=== PATIENT | male | born 1965 | race Caucasian/White ===

== ENCOUNTER 2017-10-14 18:45 | Emergency (ER) | payer OTHER ==
[2017-10-14 18:50] VITALS: BMI 26.6
--- NOTE | 2017-10-14 18:51 | PDOC ---
Rapid Medical Evaluation Time Seen by Provider: 10/14/17 18:47 Medical Evaluation: Allergies Allergy/AdvReac Type Severity Reaction Status Date / Time acetaminophen [From Tylenol] Allergy Hives Verified 07/20/16 21:01 10/14/17 18:47 Pt c/o: hx renal failure, pain to left kidney x 3- 4 days, sees Dr. Nicholson at [facility] but did not see her with this pain. + chills, no dysuria Pt on brief exam: vss Pt ordered for:ua, ucx, cbc, comp, P to proceed to the ED: Discharge Disposition - Diagnosis Kidney pain - Referrals - Patient Instructions - Post Discharge Activity
--- NOTE | 2017-10-14 20:27 | PDOC ---
History of Present Illness - General History Source: Patient <Eddy Hong - Last Filed: 10/14/17 23:28> - General History Source: Patient Exam Limitations: No Limitations - History of Present Illness Initial Comments: 10/14/17 20:45 The patient is a 60 year old male, with a significant past medical history of htn and polycystic kidney disease, who presents to the emergency department with mild nausea and left flank radiating to his left lower quadrant since Wednesday. The patient states his pain is constant, 8/10 in severity, and alleviated with bowel movements. He reports the left flank and LLQ pain is not alleviated or exacerbated by urination. The patient denies chest pain, shortness of breath, headache and dizziness. The patient denies fever, chills, vomit, diarrhea and constipation. The patient denies dysuria, frequency, urgency and hematuria. Allergies: acetaminophen <Teetee Denton - Last Filed: 10/14/17 23:33> - General Chief Complaint: Pain, Acute Stated Complaint: PAIN, ACUTE Time Seen by Provider: 10/14/17 18:47 Past History - Past Medical History Cardiac Disorders: Yes (ARRYTHMIA) COPD: No Disorders: Yes (RENAL DISEASE) HTN: Yes Hypercholesterolemia: Yes - Suicide/Smoking/Psychosocial Hx Smoking History: Never smoked Have you smoked in the past 12 months: No Number of Cigarettes Smoked Daily: 0 Hx Alcohol Use: No Drug/Substance Use Hx: No Substance Use Type: None <Eddy Hong - Last Filed: 10/14/17 23:28> <Teetee Denton - Last Filed: 10/14/17 23:33> - Past Medical History Allergies/Adverse Reactions: Allergies Allergy/AdvReac Type Severity Reaction Status Date / Time acetaminophen [From Tylenol] Allergy Hives Verified 10/14/17 18:50 Home Medications: Ambulatory Orders Amlodipine Besylate [Norvasc -] 5 mg PO DAILY #30 tablet 07/29/14 Metoprolol Tartrate [Lopressor -] 25 mg PO DAILY #30 tablet 07/29/14 Lisinopril 0 mg PO DAILY 07/20/16 Pravastatin Sodium 0 mg PO HS 07/20/16 Levofloxacin [Levaquin] 500 mg PO DAILY #1 tablet 10/14/17 Tramadol HCl [Ultram] 50 mg PO QID #20 tablet MDD 4 10/14/17 metroNIDAZOLE [Flagyl] 500 mg PO BID #14 tablet 10/14/17 Review of Systems - Review of Systems Able to Perform ROS?: Yes Comments:: 10/14/17 20:45 CONSTITUTIONAL: Absent: fever, chills, diaphoresis, generalized weakness, malaise, loss of appetite HEENT: Absent: rhinorrhea, nasal congestion, throat pain, throat swelling, difficulty swallowing, mouth swelling, ear pain, eye pain, visual Changes CARDIOVASCULAR: Absent: chest pain, syncope, palpitations, irregular heart rate, lightheadedness , peripheral edema RESPIRATORY: Absent: cough, shortness of breath, dyspnea with exertion, orthopnea, wheezing, stridor, hemoptysis GASTROINTESTINAL: (+) left lower quadrant abdominal pain and nausea. Absent: abdominal distension , nausea, vomiting, diarrhea, constipation, melena, hematochezia GENITOURINARY: (+) left flank pain, Absent: dysuria, frequency, urgency, hesitancy, hematuria, genital pain MUSCULOSKELETAL: Absent: myalgia, arthralgia, joint swelling SKIN: Absent: rash, itching, pallor HEMATOLOGIC/IMMUNOLOGIC: Absent: easy bleeding, easy bruising, lymphadenopathy, frequent infections ENDOCRINE: Absent: unexplained weight gain, unexplained weight loss, heat intolerance, cold intolerance NEUROLOGIC: Absent: headache, focal weakness or paresthesias, dizziness, unsteady gait, seizure, mental status changes, bladder or bowel incontinence PSYCHIATRIC: Absent: anxiety, depression, suicidal or homicidal ideation, hallucinations. <Teetee Denton - Last Filed: 10/14/17 23:33> *Physical Exam - Vital Signs Last Vital Signs Temp Pulse Resp BP Pulse Ox 98.0 F 111 H 16 153/123 98 10/14/17 18:47 10/14/17 18:47 10/14/17 18:47 10/14/17 18:47 10/14/17 18:47 <Eddy Hong - Last Filed: 10/14/17 23:28> - Vital Signs Last Vital Signs Temp Pulse Resp BP Pulse Ox 98.0 F 111 H 16 153/123 98 10/14/17 18:47 10/14/17 18:47 10/14/17 18:47 10/14/17 18:47 10/14/17 18:47 - Physical Exam Comments: 10/14/17 20:46 GENERAL: (+) moderate distress. Well developed, well nourished. Awake and alert. HEENT: Normocephalic, atraumatic. PERRLA, EOMI. No conjunctival pallor. Sclera are non- icteric. Moist mucous membranes. Oropharynx is clear. NECK: Supple. Full ROM. No JVD. Carotid pulses 2+ and symmetric, without bruits. No thyromegaly. No lymphadenopathy. CARDIOVASCULAR: Regular rate and rhythm. No murmurs, rubs, or gallops. Distal pulses are 2+ and symmetric. PULMONARY: No evidence of respiratory distress. Lungs clear to auscultation bilaterally. No wheezing, rales or rhonchi. ABDOMINAL: (+) tenderness to palpation to the LLQ. Soft. Non-distended. No rebound or guarding. No organomegaly. Normoactive bowel sounds. MUSCULOSKELETAL (+) left CVA tenderness. Normal range of motion at all joints. No bony deformities or tenderness. EXTREMITIES: No cyanosis. No clubbing. No edema. No calf tenderness. SKIN: Warm and dry. Normal capillary refill. No rashes. No jaundice. NEUROLOGICAL: Alert, awake, appropriate. Cranial nerves 2-12 intact. Normoreflexic in the upper and lower extremities. Normal speech. Toes are down-going bilaterally. Gait is normal without ataxia. PSYCHIATRIC: Cooperative. Good eye contact. Appropriate mood and affect. <Teetee Denton - Last Filed: 10/14/17 23:33> ED Treatment Course - LABORATORY CBC & Chemistry Diagram: 10/14/17 19:29 10/14/17 19:29 <Eddy Hong - Last Filed: 10/14/17 23:28> - LABORATORY CBC & Chemistry Diagram: 10/14/17 19:29 10/14/17 19:29 - ADDITIONAL ORDERS Additional order review: Laboratory Results 10/14/17 19:29 Urine Color Straw Urine Appearance Clear Urine pH 7.0 Ur Specific [place] 1.010 Urine Protein Negative Urine Glucose (UA) Negative Urine Ketones Negative Urine Blood Negative Urine Nitrite Negative Urine Bilirubin Negative Urine Urobilinogen Negative Ur Leukocyte Esterase Negative 10/14/17 19:29 RBC 4.90 MCV 82.9 MCHC 34.1 RDW 12.9 MPV 8.3 Neutrophils % 80.9 D Lymphocytes % 11.2 D Monocytes % 6.8 Eosinophils % 0.8 Basophils % 0.3 - RADIOLOGY Radiograph Interpretation: EXAM#: TYPE/EXAM: RESULT: [id number] CT/SPIRAL- RENAL-STONE CT Indication: Clinical suspicion for nephrolithiasis. Technique: CT of the abdomen and pelvis without oral contrast and without intravenous contrast. Comparison: 07/29/2014 CT abdomen/pelvis. Findings: Evaluation of the solid viscera, bowel and vessels is limited without contrast. The visualized lung bases are unremarkable. The heart is enlarged. The liver is enlarged with numerous cystic lesions. The spleen is normal in size. The gallbladder is not pathologically distended. The common bile duct is not dilated. The unenhanced pancreas is unremarkable. There is bilateral renal enlargement with innumerable cystic lesions replacing the majority of both kidneys, consistent with autosomal dominant polycystic kidney disease. Many of the cystic lesions in both kidneys are complicated with intrinsic hyperdense contents, which are most most likely attributed to hemorrhage. There are also cystic lesions in both kidneys complicated with calcification. There is asymmetric thickening of the left pararenal fascia. There are bilateral nonobstructing renal calculi in the upper poles, measuring up to 6 mm in the left kidney. No ureteral calculi identified. There is no hydroureteronephrosis. Normal caliber abdominal aorta. There is no nodule or mass in the adrenal glands. There are no dilated loops of large or small bowel to suggest obstruction. There is a normal- appearing appendix. There are diverticula along the descending colon with suggestion of segmental annular wall thickening along the mid descending colon. There is no free intraperitoneal air. There is trace free fluid in the pelvis. The prostate gland is enlarged, indenting the base the urinary bladder. Please correlate with PSA and physical exam. The urinary bladder is well distended with no evidence of calculus, otherwise unremarkable. No acute fracture in the visualized osseous structures. Impression: 1. Bilateral renal enlargement with innumerable cystic lesions replacing the majority of the kidneys as described above, and numerous hepatic cysts. These findings are compatible with autosomal dominant polycystic kidney disease. 2. Bilateral nonobstructing nephrolithiasis measuring up to 6 mm in the left kidney. No obstructive uropathy. No ureteral or urinary bladder calculi. 3. Asymmetric prominent thickening of the left pararenal fascia with relative sparing of the perirenal fat. Left retroperitoneal fat stranding, surrounding a segment of the descending colon raises the possibility of colitis or diverticulitis. Alternative considerations include recent hemorrhage into a cyst with possible disruption. Left pyelonephritis is not excluded. Please correlate clinically. 4. Enlarged prostate gland indenting the base the urinary bladder. Please correlate with PSA and physical exam Reported By: Dori Manciniivándarrylmacie 10/14/17 [id number] <Teetee Denton - Last Filed: 10/14/17 23:33> Medical Decision Making - Medical Decision Making 10/14/17 23:32 Dr. Hong: The scribe's documentation has been prepared under my direction and personally reviewed by me in its entirery. I confirm that the note above accurately reflects all work, treatment, procedures, and medical decision making performed by me. <Eddy Hong - Last Filed: 10/14/17 23:28> *DC/Admit/Observation/Transfer - Discharge Dispostion Admit: No <Eddy Hong - Last Filed: 10/14/17 23:28> - Attestations Scribe Attestion: 10/14/17 20:48 Documentation prepared by Teetee Denton, acting as biomedical specialist for Eddy Hong DO. <Teetee Denton - Last Filed: 10/14/17 23:33> Diagnosis at time of Disposition: Kidney pain, Colitis - Discharge Dispostion Disposition: HOME - Prescriptions Prescriptions: Levofloxacin [Levaquin] 500 mg PO DAILY #1 tablet metroNIDAZOLE [Flagyl] 500 mg PO BID #14 tablet Tramadol HCl [Ultram] 50 mg PO QID #20 tablet MDD 4 - Referrals Referrals: Yosvany Sexton MD [Staff Physician] - Nash Rankin MD [Staff Physician] - - Patient Instructions Printed Discharge Instructions: DI for Colitis Additional Instructions: Please take medications as directed. Follow up with the doctors provided to you. Avoid alcohol when taking Flagyl. Print Language: [place]
[2017-10-14 20:37] LABS: BASO % 0.3 % (0-2.0); EOS % 0.8 % (0-4.5); HEMATOCRIT 40.6 % (35.4-49); HEMOGLOBIN 13.9 GM/dL (11.7-16.9); LYMPH % 11.2 % (8-40); MCH 28.3 pg (25.7-33.7); MCHC 34.1 g/dl (32.0-35.9); MEAN CELL VOLUME 82.9 fl (80-96); MEAN PLT VOLUME 8.3 fl (7.5-11.1); MONO % 6.8 % (3.8-10.2); NEUT % 80.9 % (42.8-82.8); PLATELET COUNT 321 K/MM3 (134-434); RDW 12.9 % (11.9-15.9); URINE APPEARANCE CLEAR; URINE BILIRUBIN NEGATIVE (NEGATIVE); URINE BLOOD NEGATIVE (NEGATIVE); URINE COLOR STRAW; URINE GLUCOSE (UA) NEGATIVE (NEGATIVE); URINE KETONE NEGATIVE (NEGATIVE); URINE LEUK ESTERASE NEGATIVE (NEGATIVE); URINE NITRITE NEGATIVE (NEGATIVE); URINE PROTEIN NEGATIVE (NEGATIVE); URINE UROBILINOGEN NEGATIVE mg/dL (0.2-1.0); WHITE BLOOD COUNT 10.5 K/mm3 (4.0-10.0)
[2017-10-14] MEDS ORDERED: SODIUM CHLORIDE 1,000 ML IV STA (20:42)
[2017-10-14] MEDS ORDERED: KETOROLAC TROMETHAMINE 30 MG/1 ML VIAL IVPUSH ONE (20:42)
[2017-10-14] MEDS ORDERED: KETOROLAC TROMETHAMINE 30 MG/1 ML VIAL ONE (20:48)
[2017-10-14 21:04] LABS: ALBUMIN 3.7 g/dl (3.4-5.0); ANION GAP 7 (8-16); BLOOD UREA NITROGEN 17 mg/dL (7-18); CALCIUM 8.2 mg/dL (8.5-10.1); CHLORIDE 102 mmol/L (98-107); CO2 28 mmol/L (21-32); GLUCOSE,RANDOM 109 mg/dL (74-106); SGOT/AST 21 U/L (15-37); SGPT/ALT 37 U/L (12-78); SODIUM 137 mmol/L (136-145)
[2017-10-14 21:06] LABS: ALK PHOS 83 U/L (45-117); BILIRUBIN,TOTAL 0.8 mg/dL (0.2-1.0); TOT PROT 7.1 g/dl (6.4-8.2)
[2017-10-14] MEDS ORDERED: metroNIDAZOLE 250 MG TABLET PO ONE (23:22)
[2017-10-14] MEDS ORDERED: traMADol HCL 50 MG TABLET PO ONE (23:23)
[2017-10-15] MEDS ORDERED: traMADol HCL 50 MG TABLET ONE (00:20)
[2017-10-15] MEDS ORDERED: metroNIDAZOLE 250 MG TABLET ONE (00:21)
[2017-10-15 00:32] VITALS: BP 147/68; PULSE 86; TEMP 98
== END 2017-10-15 00:33 | disposition home or self-care (01) ==
LOC: JER 18:45
PROC: 3E0333Z Introduction of Anti-inflammatory into Peripheral Vein, Percutaneous Approach (ICD-10-PCS; principal; 2017-10-14)
PROC: 3E0337Z Introduction of Electrolytic and Water Balance Substance into Peripheral Vein, Percutaneous Approach (ICD-10-PCS; 2017-10-14)
DX: N23 Unspecified renal colic (principal); K52.9 Noninfective gastroenteritis and colitis, unspecified
CPT/HCPCS: 36415; 74176; 80053; 81003; 85025; 87086; 99283-25

== ENCOUNTER 2017-10-16 18:34 | Emergency (ER) | payer OTHER ==
[2017-10-16 18:47] VITALS: BMI 26.6
--- NOTE | 2017-10-16 19:14 | PDOC ---
History of Present Illness - General Chief Complaint: Pain, Acute Stated Complaint: ABDOMINAL PAIN Time Seen by Provider: 10/16/17 19:11 - History of Present Illness Initial Comments: 10/16/17 19:34 Mr. Mai is a 52 yo male w/ pmh of HTN, HLD, and polycystic kidney disease who represents to the ED after being seen 2 days ago for colitis. He reports continued nausea with left flank pain radiating to his left lower quadrant since 10/11/17. The patient reports the pain is constant and made worse by eating. Pain is not alleviated or exacerbated by urination. Allergies: Acetaminophen Past History - Past Medical History Allergies/Adverse Reactions: Allergies Allergy/AdvReac Type Severity Reaction Status Date / Time acetaminophen [From Tylenol] Allergy Hives Verified 10/16/17 18:46 Home Medications: Ambulatory Orders Amlodipine Besylate [Norvasc -] 5 mg PO DAILY #30 tablet 07/29/14 Metoprolol Tartrate [Lopressor -] 25 mg PO DAILY #30 tablet 07/29/14 Lisinopril 0 mg PO DAILY 07/20/16 Pravastatin Sodium 0 mg PO HS 07/20/16 Levofloxacin [Levaquin] 500 mg PO DAILY #1 tablet 10/14/17 Tramadol HCl [Ultram] 50 mg PO QID #20 tablet MDD 4 10/14/17 Ketorolac Tromethamine [Toradol] 10 mg PO TID #12 tablet 10/16/17 Levofloxacin [Levaquin] 500 mg PO DAILY #7 tablet 10/16/17 Cardiac Disorders: Yes (ARRYTHMIA) COPD: No Disorders: Yes (RENAL DISEASE) HTN: Yes Hypercholesterolemia: Yes Kidney Stones: Yes - Suicide/Smoking/Psychosocial Hx Smoking History: Never smoked Have you smoked in the past 12 months: No Number of Cigarettes Smoked Daily: 0 Hx Alcohol Use: No Drug/Substance Use Hx: No Substance Use Type: None Review of Systems - Review of Systems Comments:: 10/16/17 19:13 GENERAL/CONSTITUTIONAL: No fever or chills. No weakness. HEAD, EYES, EARS, NOSE AND THROAT: No change in vision. No ear pain or discharge. No sore throat. CARDIOVASCULAR: No chest pain or shortness of breath RESPIRATORY: No cough, wheezing, or hemoptysis. GASTROINTESTINAL: +mild nausea, abdominal pain to left lower quadrant with limited episodes of vomiting yesterday and today. Recent mild constipation. No diarrhea. GENITOURINARY: No dysuria, frequency, or change in urination. MUSCULOSKELETAL: No joint or muscle swelling or pain. No neck or back pain. SKIN: No rash NEUROLOGIC: No headache, vertigo, loss of consciousness, or change in strength/ sensation. ENDOCRINE: No increased thirst. No abnormal weight change HEMATOLOGIC/LYMPHATIC: No anemia, easy bleeding, or history of blood clots. ALLERGIC/IMMUNOLOGIC: No hives or skin allergy. *Physical Exam - Vital Signs Last Vital Signs Temp Pulse Resp BP Pulse Ox 100.5 F H 105 H 20 154/105 20 L 10/16/17 18:40 10/16/17 18:40 10/16/17 18:40 10/16/17 18:40 10/16/17 18:40 - Physical Exam Comments: 10/16/17 19:13 GENERAL: Awake, alert, and fully oriented, in no acute distress HEAD: No signs of trauma, normocephalic, atraumatic EYES: PERRLA, EOMI, sclera anicteric, conjunctiva clear ENT: Auricles normal inspection, hearing grossly normal, nares patent, oropharynx clear without exudates. Moist mucosa NECK: Normal ROM, supple, no lymphadenopathy, JVD, or masses LUNGS: No distress, speaks full sentences, clear to auscultation bilaterally HEART: Regular rate and rhythm, normal S1 and S2, no murmurs, rubs or gallops, peripheral pulses normal and equal bilaterally. ABDOMEN: +TTP in left upper/lower quadrants. Soft, normoactive bowel sounds. No guarding, no rebound. No masses EXTREMITIES: Normal inspection, Normal range of motion, no edema. No clubbing or cyanosis. NEUROLOGICAL: Cranial nerves II through XII grossly intact. Normal speech, normal gait, no focal sensorimotor deficits SKIN: Warm, Dry, normal turgor, no rashes or lesions noted. ED Treatment Course - LABORATORY CBC & Chemistry Diagram: 10/16/17 19:48 10/16/17 19:48 Medical Decision Making - Medical Decision Making 10/16/17 21:19 Patient is a 52 yo male w/ pmh as described who presents w/ continuation of colitis pain. CBC/CMP revealed hypocalcemia and hypnatremia; 1 L NS and calcium given for repletion. Patient reports resolution of pain with toradol 15mg, will follow-up with GI at scheduled appt on wednesday. Will d/c with levaquin for ABX therapy with additional NSAIDS for pain relief. Patient verbalized understanding and agreement with plan and will comply. Laboratory Results - last 24 hr 10/16/17 10/16/17 19:48 19:48 WBC 8.2 RBC 4.56 Hgb 12.9 Hct 37.3 MCV 81.8 MCH 28.3 MCHC 34.6 RDW 12.9 Plt Count 314 MPV 7.8 Neutrophils % 83.7 H Lymphocytes % 9.1 Monocytes % 6.4 Eosinophils % 0.4 Basophils % 0.4 Sodium 134 L Potassium 3.8 Chloride 99 Carbon Dioxide 28 Anion Gap 7 L BUN 17 Creatinine 1.1 Creat Clearance w eGFR > 60 Random Glucose 141 H D Calcium 7.7 L Total Bilirubin 0.5 D AST 27 D ALT 37 Alkaline Phosphatase 88 Total Protein 6.8 Albumin 3.3 L *DC/Admit/Observation/Transfer Diagnosis at time of Disposition: Colitis - Discharge Dispostion Disposition: HOME Condition at time of disposition: Improved - Prescriptions Prescriptions: Ketorolac Tromethamine [Toradol] 10 mg PO TID #12 tablet Levofloxacin [Levaquin] 500 mg PO DAILY #7 tablet - Referrals Referrals: Dwayne Soto MD [Primary Care Provider] - - Patient Instructions Printed Discharge Instructions: DI for Colitis Additional Instructions: Please return if any increase in pain or pain not controllable with prescribed medications. Fill prescriptions as discussed and follow-up at your scheduled appointment on Wednesday. - Post Discharge Activity Forms/Work/School Notes: Back to Work
[2017-10-16] MEDS ORDERED: KETOROLAC TROMETHAMINE 15 MG/ML VIAL IVPUSH ONE (19:30)
[2017-10-16] MEDS ORDERED: KETOROLAC TROMETHAMINE 15 MG/ML VIAL ONE (19:37)
[2017-10-16] MEDS ORDERED: IBUPROFEN 400 MG TABLET (FP) PO ONE ×2 (19:52→19:59)
[2017-10-16 19:55] LABS: BASO % 0.4 % (0-2.0); EOS % 0.4 % (0-4.5); HEMATOCRIT 37.3 % (35.4-49); HEMOGLOBIN 12.9 GM/dL (11.7-16.9); LYMPH % 9.1 % (8-40); MCH 28.3 pg (25.7-33.7); MCHC 34.6 g/dl (32.0-35.9); MEAN CELL VOLUME 81.8 fl (80-96); MEAN PLT VOLUME 7.8 fl (7.5-11.1); MONO % 6.4 % (3.8-10.2); NEUT % 83.7 % (42.8-82.8); PLATELET COUNT 314 K/MM3 (134-434); RBC 4.56 M/mm3 (4.00-5.60); RDW 12.9 % (11.9-15.9); WHITE BLOOD COUNT 8.2 K/mm3 (4.0-10.0)
[2017-10-16 20:19] LABS: ALBUMIN 3.3 g/dl (3.4-5.0); ALK PHOS 88 U/L (45-117); ANION GAP 7 (8-16); BILIRUBIN,TOTAL 0.5 mg/dL (0.2-1.0); BLOOD UREA NITROGEN 17 mg/dL (7-18); CALCIUM 7.7 mg/dL (8.5-10.1); CHLORIDE 99 mmol/L (98-107); CO2 28 mmol/L (21-32); CREATININE 1.1 mg/dL (0.7-1.3); GLUCOSE,RANDOM 141 mg/dL (74-106); POTASSIUM 3.8 mmol/L (3.5-5.1); SGOT/AST 27 U/L (15-37); SGPT/ALT 37 U/L (12-78); SODIUM 134 mmol/L (136-145); TOT PROT 6.8 g/dl (6.4-8.2)
[2017-10-16] MEDS ORDERED: SODIUM CHLORIDE 1,000 ML IV STA (20:23)
[2017-10-16] MEDS ORDERED: CALCIUM CARBONATE 650 MG TABLET PO SCH (20:45)
--- NOTE | 2017-10-16 21:00 | PDOC ---
Attending Attestation - Resident Resident Name: Giancarlo Asencio - ED Attending Attestation I have performed the following: I have examined & evaluated the patient, The case was reviewed & discussed with the resident, I agree w/resident's findings & plan - HPI HPI: 10/16/17 21:30 Pt comes with llq pain and low grade temp. He was seen here 2 days ago for colitis and sent home with flagyl x 2 weeks and levaquin only one pill. Likely accidental, we will check basic labs and restart pt on levaquin x 7 more days plus one to be given today in the ER. 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 I explained to him that levaquin can cause tendon injuries. He will limit his heavy lifting. Pt has an appointment to see the GI specialist. - Physicial Exam PE: 10/16/17 21:33 Agree with resident exam. Pt has no rebound and no guarding. He is afebrile when I see him. He has minimal left flank pain and LLQ pain. Pt has no dysuria , and he has no urinary frequency. I explained to him that we will not recheck his UA at this time, as we are teating him with levaquin and that will likely cover a UTI if he happens to have one with the left flank pain. - Medical Decision Making 10/16/17 21:35 Labs normal. Neutrophil count is elevated. Pt will go home with levaquin and he will continue the flagyl as well.
[2017-10-16] MEDS ORDERED: levoFLOXacin 750 MG TABLET PO ONE (21:30)
[2017-10-16 21:38] VITALS: BP 142/95; PULSE 92; TEMP 98.1
== END 2017-10-16 22:24 | disposition home or self-care (01) ==
LOC: JER 18:34
PROC: 3E0337Z Introduction of Electrolytic and Water Balance Substance into Peripheral Vein, Percutaneous Approach (ICD-10-PCS; principal; 2017-10-16)
PROC: 3E0333Z Introduction of Anti-inflammatory into Peripheral Vein, Percutaneous Approach (ICD-10-PCS; 2017-10-16)
DX: K52.9 Noninfective gastroenteritis and colitis, unspecified (principal)
CPT/HCPCS: 36415; 80053; 85025; 99282-25

== ENCOUNTER 2017-11-28 14:47 | Emergency (ER) | payer OTHER ==
[2017-11-28 15:03] VITALS: BMI 26.4
[2017-11-28] MEDS ORDERED: SODIUM CHLORIDE 1,000 ML IV STA (15:32)
[2017-11-28] MEDS ORDERED: morphine CARPU-JECT 4 MG/1 ML DISP.SYRIN IVPUSH ONE ×2 (15:32→18:53)
[2017-11-28] MEDS ORDERED: IBUPROFEN 400 MG TABLET (FP) PO ONE ×2 (15:32→15:56)
--- NOTE | 2017-11-28 15:34 | PDOC ---
History of Present Illness - General Chief Complaint: Pain, Acute Stated Complaint: ABDOMINAL PAIN Time Seen by Provider: 11/28/17 15:18 History Source: Patient - History of Present Illness Timing/Duration: reports: other Quality: reports: severe Abdominal Pain Onset Location: reports: RUQ Past History - Past Medical History Allergies/Adverse Reactions: Allergies Allergy/AdvReac Type Severity Reaction Status Date / Time acetaminophen [From Tylenol] Allergy Hives Verified 11/28/17 14:59 Home Medications: Ambulatory Orders Amlodipine Besylate [Norvasc -] 5 mg PO DAILY #30 tablet 07/29/14 Metoprolol Tartrate [Lopressor -] 25 mg PO DAILY #30 tablet 07/29/14 Lisinopril 0 mg PO DAILY 07/20/16 Pravastatin Sodium 0 mg PO HS 07/20/16 Levofloxacin [Levaquin] 500 mg PO DAILY #1 tablet 10/14/17 Tramadol HCl [Ultram] 50 mg PO QID #20 tablet MDD 4 10/14/17 Ketorolac Tromethamine [Toradol] 10 mg PO TID #12 tablet 10/16/17 Levofloxacin [Levaquin] 500 mg PO DAILY #7 tablet 10/16/17 Cardiac Disorders: Yes (ARRYTHMIA) COPD: No Disorders: Yes (RENAL DISEASE) HTN: Yes Hypercholesterolemia: Yes Kidney Stones: Yes - Immunization History Immunization Up to Date: Yes - Suicide/Smoking/Psychosocial Hx Smoking History: Never smoked Have you smoked in the past 12 months: No Number of Cigarettes Smoked Daily: 0 Information on smoking cessation initiated: No Hx Alcohol Use: No Drug/Substance Use Hx: No Substance Use Type: None Review of Systems - Review of Systems Constitutional: No: Chills, Fever Respiratory: No: Shortness of Breath Cardiac (ROS): No: Chest Pain ABD/GI: No: Blood Streaked Bowels, Constipated, Diarrhea, Nausea, Rectal Bleeding, Vomiting : Yes: Flank Pain. No: Burning, Dysuria, Hematuria *Physical Exam - Vital Signs Last Vital Signs Temp Pulse Resp BP Pulse Ox 100.2 F H 106 H 17 144/84 97 11/28/17 15:00 11/28/17 15:00 11/28/17 15:00 11/28/17 15:00 11/28/17 15:00 - Physical Exam General Appearance: Yes: Appropriately Dressed, Moderate Distress HEENT: positive: Normal Voice Neck: positive: Supple Respiratory/Chest: positive: Lungs Clear, Normal Breath Sounds. negative: Respiratory Distress Cardiovascular: positive: Regular Rate, S1, S2 Gastrointestinal/Abdominal: positive: Normal Bowel Sounds, Tender (sig ttp to RUQ w/ ? murpheys), Soft. negative: Distended, Guarding, Rebound, Hepatomegaly Musculoskeletal: positive: CVA Tenderness (R) Integumentary: positive: Dry, Warm Neurologic: positive: Fully Oriented, Alert, Normal Mood/Affect ED Treatment Course - LABORATORY CBC & Chemistry Diagram: 11/28/17 16:40 11/28/17 16:40 - RADIOLOGY Radiology Studies Ordered: Category Date Time Status ABDOMEN US -LIMITED [US] Stat Ultrasound 11/28/17 15:31 Ordered Medical Decision Making - Medical Decision Making 11/28/17 15:32 52-year-old male history of HLD, HTN, polycystic kidney disease, renal stones, here with severe right upper quadrant pain 5 days. Unable to describe pain, but states it is constant, with an intensity of 10 out of 10. Denies nausea, vomiting, diarrhea, constipation, melena, bright red blood per rectum, fever or chills. No history of similar pain in the past. No known history of gallstones See exam R/o acute sydnie vs pancreatitis vs infected renal cyst or renal stone (given hx) -antipyeretic for low garde fever -pain control -IVF -labs -US 11/28/17 15:42 CT Impression 10/24: 1. Bilateral renal enlargement with innumerable cystic lesions replacing the majority of the kidneys as described above, and numerous hepatic cysts. These findings are compatible with autosomal dominant polycystic kidney disease. 2. Bilateral nonobstructing nephrolithiasis measuring up to 6 mm in the left kidney. No obstructive uropathy. No ureteral or urinary bladder calculi. 3. Asymmetric prominent thickening of the left pararenal fascia with relative sparing of the perirenal fat. Left retroperitoneal fat stranding, surrounding a segment of the descending colon raises the possibility of colitis or diverticulitis. Alternative considerations include recent hemorrhage into a cyst with possible disruption. Left pyelonephritis is not excluded. Please correlate clinically. 4. Enlarged prostate gland indenting the base the urinary bladder. Please correlate with PSA and physical exam 11/28/17 16:08 11/28/17 18:50 Ultrasound read as gallbladder wall thickening without evidence of cholelithiasis or pericholecystic fluid. There is no intrahepatic or extrahepatic bile duct dilatation. The common bile duct measures 0.35 cm. The pancreas appears unremarkable. Right kidney shows no pelvicaliceal dilatation or stones. 1+ blood on UA, no nitrites or leuks. Labs unremarkable otherwise. On re-evaluation, patient continues to complain of pain, currently 8 out of 10. Will continue to manage pain. Will consult with surgery at this time 11/28/17 19:[address] Avalos of surgery, who is not convinced that mild gallbladder wall thickening on ultrasound is a source of patient's pain. States pain possibly secondary to renal or hepatic cysts. States she will come down to evaluate patient and also recommending renal consult. Patient's PMD is at [facility]. Also has outside renal doc, but does not remember name at this time. Patient signed out to GRACE Cerrato at this time
[2017-11-28] MEDS ORDERED: morphine SULFATE 4 MG/ML VIAL ONE ×2 (15:55→19:07)
[2017-11-28 16:50] LABS: BASO % 0.4 % (0-2.0); EOS % 0.8 % (0-4.5); HEMATOCRIT 34.5 % (35.4-49); HEMOGLOBIN 11.8 GM/dL (11.7-16.9); LYMPH % 16.7 % (8-40); MCH 28.2 pg (25.7-33.7); MCHC 34.3 g/dl (32.0-35.9); MEAN CELL VOLUME 82.1 fl (80-96); MEAN PLT VOLUME 8.1 fl (7.5-11.1); MONO % 6.8 % (3.8-10.2); NEUT % 75.3 % (42.8-82.8); PLATELET COUNT 274 K/MM3 (134-434); RDW 13.2 % (11.9-15.9); WHITE BLOOD COUNT 7.9 K/mm3 (4.0-10.0)
[2017-11-28 16:52] LABS: URINE APPEARANCE CLEAR; URINE BILIRUBIN NEGATIVE (<2.0 mg/dL); URINE BLOOD 1+ (NEGATIVE); URINE COLOR YELLOW; URINE GLUCOSE (UA) NEGATIVE (NEGATIVE); URINE KETONE NEGATIVE (NEGATIVE); URINE LEUK ESTERASE NEGATIVE (NEGATIVE); URINE NITRITE NEGATIVE (NEGATIVE); URINE PROTEIN NEGATIVE (NEGATIVE)
[2017-11-28 17:01] LABS: EPI CELLS RARE /HPF (FEW)
[2017-11-28 17:10] LABS: ALBUMIN 3.2 g/dl (3.4-5.0); ANION GAP 12 (8-16); BILIRUBIN,TOTAL 0.6 mg/dL (0.2-1.0); BLOOD UREA NITROGEN 18 mg/dL (7-18); CHLORIDE 98 mmol/L (98-107); CO2 27 mmol/L (21-32); GLUCOSE,RANDOM 108 mg/dL (74-106); LIPASE 148 U/L (73-393); POTASSIUM 3.7 mmol/L (3.5-5.1); SGOT/AST 31 U/L (15-37); SGPT/ALT 36 U/L (12-78); SODIUM 137 mmol/L (136-145); TOT PROT 6.9 g/dl (6.4-8.2)
[2017-11-28 17:11] LABS: INR 1.06 (0.82-1.09)
[2017-11-28 17:13] LABS: ALK PHOS 93 U/L (45-117)
--- NOTE | 2017-11-28 21:03 | CONSULT ---
Consult Consult Specialty:: General Surgery Referred by:: Garima Farmer Reason for Consultation:: epigastric, RUQ pain - History of Present Illness Chief Complaint: epigastric pain radiating to RUQ and R CVA area/back x 5d History of Present Illness: 52yo M with HTN, HLD, polycystic kidney disease (cysts in kidneys and liver), h/o rapid afib 2 yrs ago - tfrd to [facility], where he had a cath without intervention, lower back disc problems, saw PMD Dr. Dwayne Soto 2 weeks ago and hotel guest service agent Dr. April Nicholson (both [facility]) last Wednesday after US 2 wks prior and was told his kidney function was good and cysts were stable. Wednesday, he began having epigastric pain radiating to RUQ and R CVA region, worse after eating, constant, and gradually increasing in intensity over these last 5 days. Tramadol partly relieved the postprandial worse pain, but it has not gone away entirely. Last 3 days, he endorses subjective fever and chills; he denies N/V, urinary symptoms (pain/burning/hematuria/dribbling), diarrhea/constipation (normal BM this morning), heart palpitations. He came to the ER because the pain just kept getting worse. He also has pain with deep breathing, and denies trauma to the affected areas. In the ER, his labs are all normal, including renal function, wbc, LFTs, lipase and H/H, except for very slight elevation in CK but not CKMB or troponin, and UA with positive blood but only one RBC present. EKG was sinus with incomplete RBBB. US was done showing cysts in kidney and liver, gallbladder without stones and with slightly thickened wall at 3.2mm but not markedly distended, no fluid, no biliary dilation. CT had been done last month, when he was in the ER with pain, which showed both kidneys with cysts which may have had hemorrhagic fluid in them, some with calcifications, bilateral nonobstructing renal stones, and left pararenal inflammatory changes including mild descending colon wall thickening, for which he was given 1 week Levo/Flagyl and referred to nephrology and GI. His pain is improved after IV pain medication and fluids in ER. Last po was breakfast this am. He reports pain/tenderness in the epigastric/RUQ area during the ultrasound and still has some pain on deep inspiration. - History Source History Provided By: Patient, Medical Record Limitations to Obtaining History: No Limitations - Past Medical History Cardio/Vascular: Yes: HTN, Hyperlipdemia Hepatobiliary: Yes: Other (liver cysts secondary to PCKD) Renal/: Yes: Renal Calculi, Other (polycystic kidney disease) Musculoskeletal: Yes: Chronic low back pain (low back disk problems with R leg sciatica) - Past Surgical History Additional Surgical History: cardiac cath at [facility] 01/2016 after episode of rapid afib (transferred from [facility]) - Alcohol/Substance Use Hx Alcohol Use: Yes (social) History of Substance Use: reports: None - Smoking History Smoking history: Former smoker Have you smoked in the past 12 months: No Aproximately how many cigarettes per day: 0 (pk/wk for 6-7 years) If you are a former smoker, when did you quit?: 15 years ago - Social History Usual Living Arrangement: With Spouse ADL: Independent Home Medications - Allergies Allergies/Adverse Reactions: Allergies Allergy/AdvReac Type Severity Reaction Status Date / Time acetaminophen [From Tylenol] Allergy Hives Verified 11/28/17 14:59 - Home Medications Home Medications: Ambulatory Orders Amlodipine Besylate [Norvasc -] 5 mg PO DAILY #30 tablet 07/29/14 Metoprolol Tartrate [Lopressor -] 25 mg PO DAILY #30 tablet 07/29/14 Pravastatin Sodium 0 mg PO HS 07/20/16 Tramadol HCl [Ultram] 50 mg PO QID #20 tablet MDD 4 10/14/17 Home Medications (free text): tramadol prn Family Disease History - Family Disease History Family History: Unable to Obtain Review of Systems - Review of Systems Constitutional: reports: Chills (with hpi), Fever (with hpi). denies: Loss of Appetite (but increased pain after eating) Eyes: denies: Blurred Vision, Recent Change in Vision HENT: denies: Difficult Swallowing, Throat Pain Neck: denies: Swollen Glands, Tenderness Cardiovascular: denies: Chest Pain, Palpitations Respiratory: reports: Other (pain with deep inspiration). denies: Cough, SOB Gastrointestinal: reports: Abdominal Pain (with hpi). denies: Constipation, Diarrhea, Nausea, Vomiting Genitourinary: denies: Burning, Dysuria, Frequency, Hematuria, Incontinence, Urgency Musculoskeletal: reports: Back Pain (disc problems), Extremity Pain (R leg from back problems - feels better when he goes to therapy) Integumentary: denies: Change in Color, Rash Neurological: denies: Dizziness, Headache Physical Exam Vital Signs: Vital Signs Temperature 97.7 F 11/28/17 20:25 Pulse Rate 75 11/28/17 20:25 Respiratory Rate 20 11/28/17 20:25 Blood Pressure 138/99 11/28/17 20:25 O2 Sat by Pulse Oximetry (%) 97 11/28/17 20:25 Constitutional: Yes: Well Nourished, No Distress, Calm Eyes: Yes: Conjunctiva Clear, EOM Intact HENT: Yes: Atraumatic, Normocephalic Neck: Yes: Supple, Trachea Midline Cardiovascular: Yes: Regular Rate and Rhythm. No: Murmur Respiratory: Yes: Regular, CTA Bilaterally Gastrointestinal: Yes: Normal Bowel Sounds, Soft, Tenderness (minimal RUQ except with deep inspiration), Tenderness, Epigastrium (without rebound or guarding). No: Distention ...Rectal Exam: Yes: Deferred Renal/: Yes: CVA Tenderness - Right. No: CVA Tenderness - Left Musculoskeletal: No: Joint Stiffness, Joint Swelling Extremities: No: Cool, Cyanosis Peripheral Pulses WNL: Yes Integumentary: Yes: Tattoos. No: Bruising, Jaundice, Rash Neurological: Yes: Alert, Oriented Labs: CBC, BMP 11/28/17 16:40 11/28/17 16:40 CMP Sodium 137 mmol/L (136-145) 11/28/17 16:40 Potassium 3.7 mmol/L (3.5-5.1) 11/28/17 16:40 Chloride 98 mmol/L (98-107) 11/28/17 16:40 Carbon Dioxide 27 mmol/L (21-32) 11/28/17 16:40 Anion Gap 12 (8-16) 11/28/17 16:40 BUN 18 mg/dL (7-18) 11/28/17 16:40 Creatinine 1.0 mg/dL (0.7-1.3) 11/28/17 16:40 Creat Clearance w eGFR > 60 (>60) 11/28/17 16:40 Random Glucose 108 mg/dL (74-106) H D 11/28/17 16:40 Calcium 8.0 mg/dL (8.5-10.1) L 11/28/17 16:40 Total Bilirubin 0.6 mg/dL (0.2-1.0) 11/28/17 16:40 AST 31 U/L (15-37) 11/28/17 16:40 ALT 36 U/L (12-78) 11/28/17 16:40 Alkaline Phosphatase 93 U/L (45-117) 11/28/17 16:40 Creatine Kinase 332 IU/L (39-308) H 11/28/17 16:40 Creatine Kinase Index 1.0 % (0.0-5.0) 11/28/17 16:40 CK-MB (CK-2) 3.433 ng/mL (0.5-3.6) 11/28/17 16:40 Troponin I < 0.02 ng/ml (0.00-0.05) 11/28/17 16:40 Total Protein 6.9 g/dl (6.4-8.2) 11/28/17 16:40 Albumin 3.2 g/dl (3.4-5.0) L 11/28/17 16:40 Lipase 148 U/L (73-393) 11/28/17 16:40 Urine Test Results Urine Color Yellow 11/28/17 16:11 Urine Appearance Clear 11/28/17 16:11 Urine pH 6.0 (5.0-8.0) 11/28/17 16:11 Ur Specific [place] 1.014 (1.001-1.035) 11/28/17 16:11 Urine Protein Negative (NEGATIVE) 11/28/17 16:11 Urine Glucose (UA) Negative (NEGATIVE) 11/28/17 16:11 Urine Ketones Negative (NEGATIVE) 11/28/17 16:11 Urine Blood 1+ (NEGATIVE) H 11/28/17 16:11 Urine Nitrite Negative (NEGATIVE) 11/28/17 16:11 Urine Bilirubin Negative (<2.0 mg/dL) 11/28/17 16:11 Ur Leukocyte Esterase Negative (NEGATIVE) 11/28/17 16:11 Ur Epithelial Cells Rare /HPF (FEW) 11/28/17 16:11 Imaging - Results Cat Scan: Report Reviewed (from 10/14/17 - cysts in both kidneys with possible evidence of hemorrhage into them, more left-sided pararenal inflammation, possible mild colitis (was rx with levo/flagyl x 1wk), cysts in liver, no biliary dilation or pancreatitis), Image Reviewed Ultrasound: Report Reviewed, Image Reviewed (images personally reviewed - gallbladder not markedly distended, wall ~3.2mm, no stones, no pericholecystic fluid, + cysts in liver, kidney) EKG: Report Reviewed (incomplete R bundle branch block), Image Reviewed (sinus rhythm at 98, no afib) Problem List - Problems (1) Polycystic kidney disease, autosomal dominant Assessment/Plan: CT from last month suggests likelihood of multiple cysts in bilateral kidneys with evidence of hemorrhagic contents, nonobstructing renal calculi, and cysts complicated by calcification with left-sided pararenal inflammatory changes Pt with cysts in kidneys and liver Pain pattern most consistent with etiology relating to renal cysts +/- hepatic cysts (?) No evidence of cholelithiasis, cholecystitis or gallbladder source of pain/ tenderness Spoke with Dr. Dereck Hull, covering for Dr. Nicholson ([facility] nephrology) by phone. He states that renal cysts can certainly cause pain. Given normal labs, particularly H/H and BUN/Cr, CT imaging unlikely to reveal significant additional info at this time, as hemorrhage into cysts may not give hematuria, and treatment would be bedrest anyway. He speculated that GI might have more insight regarding liver cysts, and might consider upper endoscopy. If pt's pain is too much to be able to tolerate po, he recommended observation in hospital overnight. Discussed with BUNDLE BREAKER Saqib in ER - agree with a period of observation, IV fluids, NPO for now, bedrest with bathroom privileges - would avoid IV pain medication if possible, and see if he would be ok at home with Tramadol prn, PO trial in am to reassess pain. Could do as ED obs vs. observation on medicine pending course. No acute general surgical issues or intervention indicated. Thank you for the opportunity to participate in the care of this patient. Code(s): Q61.2 - POLYCYSTIC KIDNEY, ADULT TYPE (2) Atrial fibrillation Assessment/Plan: sinus rhythm on EKG - appears controlled on home metoprolol Code(s): I48.91 - UNSPECIFIED ATRIAL FIBRILLATION Qualifiers: Atrial fibrillation type: paroxysmal Qualified Code(s): I48.0 - Paroxysmal atrial fibrillation (3) Hypertension Assessment/Plan: metoprolol and amlodipine per patient continue home meds Code(s): I10 - ESSENTIAL (PRIMARY) HYPERTENSION Qualifiers: Hypertension type: essential hypertension Qualified Code(s): I10 - Essential (primary) hypertension (4) Sciatica of right side Assessment/Plan: pt encouraged to continue with PT uses tramadol prn no acute issues Code(s): M54.31 - SCIATICA, RIGHT SIDE
--- NOTE | 2017-11-28 21:11 | PDOC ---
*Physical Exam - Vital Signs Last Vital Signs Temp Pulse Resp BP Pulse Ox 97.7 F 75 20 138/99 97 11/28/17 20:25 11/28/17 20:25 11/28/17 20:25 11/28/17 20:25 11/28/17 20:25 - Physical Exam General Appearance: Yes: Appropriately Dressed. No: Apparent Distress HEENT: positive: Normal ENT Inspection Neck: positive: Trachea midline, Supple Respiratory/Chest: positive: Lungs Clear, Normal Breath Sounds. negative: Respiratory Distress, Accessory Muscle Use Cardiovascular: positive: Regular Rhythm, Regular Rate. negative: Murmur Gastrointestinal/Abdominal: positive: Normal Bowel Sounds, Tender (epigastrum), Soft Musculoskeletal: positive: Normal Inspection. negative: CVA Tenderness Extremity: positive: Normal Inspection Integumentary: positive: Normal Color, Dry, Warm Neurologic: positive: Alert, Normal Response ED Treatment Course - LABORATORY CBC & Chemistry Diagram: 11/28/17 16:40 11/28/17 16:40 - ADDITIONAL ORDERS Additional order review: Laboratory Results 11/28/17 11/28/17 11/28/17 16:40 16:40 16:40 PT with INR 12.00 H INR 1.06 Sodium 137 Potassium 3.7 Chloride 98 Carbon Dioxide 27 Anion Gap 12 BUN 18 Creatinine 1.0 Creat Clearance w eGFR > 60 Random Glucose 108 H D Calcium 8.0 L Total Bilirubin 0.6 AST 31 ALT 36 Alkaline Phosphatase 93 Creatine Kinase 332 H Creatine Kinase Index 1.0 CK-MB (CK-2) 3.433 Troponin I < 0.02 Total Protein 6.9 Albumin 3.2 L Lipase 148 Urine Color Urine Appearance Urine pH Ur Specific [place] Urine Protein Urine Glucose (UA) Urine Ketones Urine Blood Urine Nitrite Urine Bilirubin Urine Urobilinogen Ur Leukocyte Esterase Urine WBC (Auto) Urine RBC (Auto) Ur Epithelial Cells Blood Type O POSITIVE Antibody Screen Negative 11/28/17 16:11 PT with INR INR Sodium Potassium Chloride Carbon Dioxide Anion Gap BUN Creatinine Creat Clearance w eGFR Random Glucose Calcium Total Bilirubin AST ALT Alkaline Phosphatase Creatine Kinase Creatine Kinase Index CK-MB (CK-2) Troponin I Total Protein Albumin Lipase Urine Color Yellow Urine Appearance Clear Urine pH 6.0 Ur Specific [place] 1.014 Urine Protein Negative Urine Glucose (UA) Negative Urine Ketones Negative Urine Blood 1+ H Urine Nitrite Negative Urine Bilirubin Negative Urine Urobilinogen 2.0 Ur Leukocyte Esterase Negative Urine WBC (Auto) <1 Urine RBC (Auto) 1 Ur Epithelial Cells Rare Blood Type Antibody Screen 11/28/17 16:40 RBC 4.20 MCV 82.1 MCHC 34.3 RDW 13.2 MPV 8.1 Neutrophils % 75.3 Lymphocytes % 16.7 D Monocytes % 6.8 Eosinophils % 0.8 D Basophils % 0.4 - Medications Given in the ED: ED Medications Discontinued Medications Generic Name Dose Route Start Last Admin Trade Name Jaimee PRN Reason Stop Dose Admin Sodium Chloride 1,000 mls @ 1,000 mls/hr 11/28/17 15:32 11/28/17 16:12 Normal Saline - IV 11/28/17 16:31 1,000 mls/hr ASDIR STA Administration Ibuprofen 800 mg 11/28/17 15:32 11/28/17 16:12 Motrin - PO 11/28/17 15:33 800 mg ONCE ONE Administration Morphine Sulfate 4 mg 11/28/17 15:32 11/28/17 16:12 Morphine Injection - IVPUSH 11/28/17 15:33 4 mg ONCE ONE Administration Morphine Sulfate 4 mg 11/28/17 18:53 11/28/17 19:09 Morphine Injection - IVPUSH 11/28/17 18:54 4 mg ONCE ONE Administration Progress Note - Progress Note Progress Note: Received signout from DARIELA Layton Patient with right upper quadrant ultrasound revealing a borderline gallbladder wall thickening without evidence of shadowing, cholelithiasis or pericholecystic fluid. Surgical evaluation by Dr. Robbie newman. Recommends that the patient does not require surgical intervention at this time. Case discussed with patient's nephrology group who states that hemorrhagic renal cyst can cause this type of pain and the treatment is bedrest and pain management. The recommend no further imaging as treatment doesn't change. Patient currently with pain 3/10 in the epigastrium radiating to the right upper quadrant. Patient has an appointment with GI specialist-Evonne on December 07. I discussed the physical exam findings, ancillary test results and final diagnoses with the patient. I answered all of the patient's questions. The patient was satisfied with the care received and felt comfortable with the discharge plan and treatment plan. The patient will call Dr. Nicholson within 24 hours to arrange follow-up and will return to the Emergency Department with any new, persistent or worsening symptoms. *DC/Admit/Observation/Transfer Diagnosis at time of Disposition: Polycystic kidney disease, autosomal dominant, Hemorrhagic cyst - Discharge Dispostion Disposition: HOME Condition at time of disposition: Stable Admit: No - Prescriptions Prescriptions: Tramadol HCl [Ultram] 50 mg PO QID #20 tablet MDD 4 - Referrals - Patient Instructions Additional Instructions: You need total bedrest for the next 3 days. Do not work for the next 3 days. Take tramadol 50 mg every 6 hours as needed for pain. Keep her previously scheduled appointment with Dr. Douglass. Call your artificial breeding technician for an appointment within the next 24 hours. Call your primary doctor for an appointment within the next 24 hours. Return to emergency department for worsening pain, nausea, vomiting, bloody urine, fevers or any other concerns. - Post Discharge Activity Forms/Work/School Notes: Back to Work
[2017-11-28 22:38] VITALS: BP 134/82; PULSE 86; TEMP 98.1
--- NOTE | 2017-11-29 14:51 | EKG ---
Test Reason : Blood Pressure : / mmHG Vent. Rate : 098 BPM Atrial Rate : 098 BPM P-R Int : 126 ms QRS Dur : 102 ms QT Int : 370 ms P-R-T Axes : 064 073 044 degrees QTc Int : 472 ms NORMAL SINUS RHYTHM INCOMPLETE RIGHT BUNDLE BRANCH BLOCK BORDERLINE ECG WHEN COMPARED WITH ECG OF 21-JUL-2016 02:53, NO SIGNIFICANT CHANGE WAS FOUND Confirmed by TREY NARANJO MD ([id number]) on 11/29/2017 2:51:21 PM Referred By: Confirmed By:TREY NARANJO MD
== END 2017-11-28 22:47 | disposition home or self-care (01) ==
LOC: JER 14:47
DX: Q61.2 Polycystic kidney, adult type (principal); K76.89 Other specified diseases of liver; I48.0 Paroxysmal atrial fibrillation; I10 Essential (primary) hypertension; M54.31 Sciatica, right side; Z98.61 Coronary angioplasty status
CPT/HCPCS: 36415; 76705-TC; 80053; 81003; 81015; 82550; 82553; 83690; 84484; 85025; 85610; 86850; 86900; 86901; 93005; 93010; 99283-25; J7030